=== PATIENT | male | born 1965 | race Caucasian/White ===

== ENCOUNTER → 2018-06-27 | Outpatient (CLI) | payer BC ==
--- NOTE | 2018-06-27 07:34 | US ---
EXAMINATION TYPE: US abdomen limited DATE OF EXAM: 06/27/2018 COMPARISON: NONE CLINICAL HISTORY: R52 PAIN. Intermittent RUQ pain x 6 months, gets worse after eating EXAM MEASUREMENTS: Liver Length: 15.9 cm Gallbladder Wall: 0.2 cm CBD: 0.3 cm Right Kidney: 10.5 x 4.8 x 5.6 cm Pancreas: visualized portions wnl, tail obscured by overlying midline bowel gas Liver: wnl Gallbladder: wnl Evidence for sonographic Willoughby's sign: no CBD: wnl Right Kidney: wnl IMPRESSION: 1. No distinct abnormality appreciated.
--- NOTE | 2018-06-27 09:12 | XR ---
EXAMINATION TYPE: XR chest 2V DATE OF EXAM: 06/27/2018 COMPARISON: NONE TECHNIQUE: PA and lateral views submitted. HISTORY: Chest pain FINDINGS: The lungs are clear and there is no pneumothorax, pleural effusion, or focal pneumonia. Hypertrophi c change of the spine. Hyperinflation of the lungs. Biapical pleural thickening. IMPRESSION: 1. No acute process.
== END ==
LOC: RADUSWWP 06:47
PROVIDERS: ATTEND Internal Medicine
DX: R10.11 Right upper quadrant pain (principal); T07.XXXA Unspecified multiple injuries, initial encounter
CPT/HCPCS: 71046; 76705

== ENCOUNTER → 2018-09-03 | Outpatient (CLI) | payer BC ==
--- NOTE | 2018-09-03 09:11 | NM ---
Nuclear medicine hepatobiliary scan. HISTORY: Pain. DOSAGE: The patient received 8 ounces of ensure plus and 5.1 mCi of Technetium 99m Choletec. FINDINGS: There is normal hepatic extraction. The gallbladder is seen by 20 minutes. There is bilia ry to bowel clearance by 20 minutes. Ejection fraction is 73%. IMPRESSION: 1. Normal hepatobiliary exam
== END | disposition home or self-care (01) ==
LOC: RADNMMAIN 06:39
PROVIDERS: ATTEND Internal Medicine
DX: R10.9 Unspecified abdominal pain (principal)
CPT/HCPCS: 78226; A9537

== ENCOUNTER → 2018-09-05 | Outpatient (CLI) | payer BC ==
[2018-09-05 09:30] LABS: Basophils # (A) 0.1 k/uL (0-0.2); Basophils % (A) 0 %; Eosinophils # (A) 0.1 k/uL (0-0.7); Eosinophils % (A) 1 %; HCT 42.2 % (39.0-53.0); HGB 13.7 gm/dL (13.0-17.5); Lymphocytes # (A) 1.8 k/uL (1.0-4.8); Lymphocytes % (A) 16 %; MCH 31.6 pg (25.0-35.0); MCHC 32.3 g/dL (31.0-37.0); MCV 97.7 fL (80.0-100.0); Mean Platelet Volume 6.5; Monocytes # (A) 0.4 k/uL (0-1.0); Monocytes % (A) 4 %; Neutrophils # (A) 8.6 k/uL (1.3-7.7); Neutrophils % (A) 76 %; Platelet Count 349 k/uL (150-450); RBC 4.32 m/uL (4.30-5.90); RDW 12.2 % (11.5-15.5); WBC 11.3 k/uL (3.8-10.6)
[2018-09-05 18:02] LABS: African American GFR (CKD) 114.2 (60.0-200.0); Albumin 4.4 g/dL (3.80-4.90); Albumin/Globulin Ratio 2.32 (1.60-3.17); Anion Gap 7.1 mmol/L (4.00-12.00); Calcium 9.5 mg/dL (8.7-10.3); Carbon Dioxide 24.9 mmol/L (21.6-31.8); Globulin 1.9 g/dL (1.6-3.3); Potassium 4.7 mmol/L (3.5-5.5); Total Bilirubin 0.3 mg/dL (0.2-1.2); Total Protein 6.3 g/dL (6.2-8.2)
== END | disposition home or self-care (01) ==
LOC: LABWHC1 08:46
PROVIDERS: ATTEND Internal Medicine
DX: R10.9 Unspecified abdominal pain (principal)
CPT/HCPCS: 36415; 80053; 82150; 83690; 85025

== ENCOUNTER 2018-09-17 07:13 | Day surgery (SDC) | payer BC ==
[2018-09-13 15:06] VITALS: BMI 26.5
[~2018-09-17 07:13] MED LIST: LACTATED RINGERS 1,000 ML IV SCH; LIDOCAINE 1% 20 ML VIAL (10MG/ML) FOR IV START INTRADERMA PRN
[2018-09-17 07:28] VITALS: TEMP 97
[2018-09-17] MEDS ORDERED: PROPOFOL 10 MG/ML 20 ML VIAL IV ONE (09:22)
[2018-09-17] MEDS ORDERED: LIDOCAINE 1% INJ 10MG/ML (20 ML MDV) ONE (09:22)
[2018-09-17 10:09] VITALS: RESP 16
--- NOTE | 2018-09-17 10:18 | P.PCN ---
Date of Procedure: 09/17/18 Description of Procedure: Brief history: Patient is a pleasant scheduled for an elective upper endoscopy as well as colonoscopy as a part of evaluation of intermittent epigastric and right upper quadrant abdominal pain and screening. The patient had been having pain proximally 3 times a week in the right upper quadrant and epigastric region over the past 6 months. He describes as aching in nature lasting approximately 1 hour. Ultrasound of abdomen was negative for any gallbladder or biliary pathology. EGD is being performed for further evaluation. In addition reports no prior history of screening colonoscopy. No family history of colon cancer. No change in bowel habits or blood per rectum. Procedure performed: Esophagogastroduodenoscopy with biopsy Colonoscopy with polypectomy Estimated blood loss: Minimal. Preoperative diagnosis: Epigastric abdominal pain, screening for malignant neoplasm of the colon, no prior colonoscopy Anesthesia: MAC Procedure: After informed consent was obtained from the patient was brought into the endoscopy unit and IV sedation was administered by anesthesia under continuous monitoring. Initially upper endoscopy was done. The Olympus GF 190 video endoscope was inserted inserted into the mouth and esophagus intubated without any difficulty and was gradually advanced into the stomach and duodenum and carefully examined. The bulb and second part of the duodenum appeared normal, with biopsies. The scope was then withdrawn into the stomach adequately insufflated with air and upon careful examination the antrum and body, cardia and fundus appeared grossly normal except for some mild diffuse erythema in the antrum and body suggestive of mild gastritis with biopsies taken. The scope was then withdrawn into the esophagus. The GE junction was located at 40 cm to the incisors and biopsies. It appeared regular with no erythema erosions or ulcerations. Rest of the esophagus appeared normal. Patient tolerated the procedure well. At this time the patient continued to remain sedation. Initial digital rectal examination was normal. Olympus CF 190 video colonoscope was then inserted into the rectum and gradually advanced to the cecum without any difficulty. Careful examination was performed as the scope was gradually being withdrawn. The prep was good. The cecum, ascending colon, transverse colon, descending colon, sigmoid colon and rectum appeared normal. 4 mm sessile transverse colon polyp removed with cold snare polypectomy. Pedunculated 11 mm sigmoid colon polyp removed with hot snare polypectomy. Mild internal hemorrhoids. Retroflexion was performed in the rectum and no lesions were noted. Patient tolerated the procedure well. Impression: 1. Mild gastritis antrum and body, biopsied. Duodenal biopsy. GE junction biopsy. 2. Cold snare polypectomy of transverse polyp. Hot snare polypectomy of pedunculated sigmoid polyp. Mild internal hemorrhoids. Recommendations: Findings of this examination were discussed with the patient as well as his father. Okay to resume diet. Await pathology from polypectomies and biopsies. Recommend colonoscopy in 3 years given high-risk colon polyp. Follow up with gastroenterology as previously scheduled.
[2018-09-17 10:24] VITALS: BP 123/74; PULSE 64
== END 2018-09-17 10:47 | disposition home or self-care (01) ==
LOC: ORWHC2ENDO 07:13
PROVIDERS: ATTEND Internal Medicine
DX: Z12.11 Encounter for screening for malignant neoplasm of colon (principal); D12.5 Benign neoplasm of sigmoid colon; K63.5 Polyp of colon; K29.80 Duodenitis without bleeding; K31.9 Disease of stomach and duodenum, unspecified; K21.0 Gastro-esophageal reflux disease with esophagitis; K64.8 Other hemorrhoids; F17.200 Nicotine dependence, unspecified, uncomplicated
CPT/HCPCS: 88305; 45385; 43239; J2001; J2704

== ENCOUNTER → 2019-12-26 | Outpatient (CLI) | payer BC | END | disposition home or self-care (01) | LOC: LABWHC1 15:04 | PROVIDERS: ATTEND Nurse Practitioner Family | DX: R50.9 Fever, unspecified (principal) | CPT/HCPCS: U0003; C9803 ==

== ENCOUNTER 2021-08-13 09:10 | Day surgery (SDC) | payer BC ==
[2021-08-12 09:58] VITALS: BMI 25.8
[~2021-08-13 09:10] MED LIST changes: +LIDOCAINE 1% (10MG/ML) FOR IV START INTRADERMA PRN; -LIDOCAINE 1% 20 ML VIAL (10MG/ML) FOR IV START INTRADERMA PRN
[2021-08-13 09:45] VITALS: TEMP 98.2
[2021-08-13] MEDS ORDERED: PROPOFOL 10 MG/ML 20 ML VIAL IV ONE (10:42)
--- NOTE | 2021-08-13 10:58 | P.PCN ---
Date of Procedure: 08/13/21 Procedure(s) Performed: BRIEF HISTORY: Patient is a 55-year-old pleasant white male white male scheduled for an elective colonoscopy as a part of evaluation of prior history of colon polyps. Last colonoscopy was 3 years ago. PROCEDURE PERFORMED: Colonoscopy with biopsy PREOPERATIVE DIAGNOSIS: history of colon polyps IV sedation per Anesthesia. PROCEDURE: After informed consent was obtained, the patient, was brought into the endoscopy unit. IV sedation was administered by Anesthesia under continuous monitoring. Digital rectal examination was normal. Initially the Olympus CF-160 flexible video colonoscope was then inserted in the rectum, gradually advanced into the cecum without any difficulty. Careful examination was performed as the scope was gradually being withdrawn. Ileocecal valve and the appendiceal orifice were visualized and appeared normal. Prep was excellent. Mucosa of the cecum, ascending colon, transverse colon, descending colon, sigmoid colon, and rectum appeared normal. there was a 5 limited polyp in the distal rectum that was removed by cold biopsy. Retroflexion was performed in the rectum and no lesions were seen. The patient tolerated the procedure well. IMPRESSION: 5 mm rectal polyp status post cold biopsy Rest of the colon appeared normal RECOMMENDATIONS: Findings of this examination were discussed with the patient as well as his family. He was advised to follow with the biopsy results. If the biopsy report adenoma he can have a repeat colonoscopy in 5 years
[2021-08-13 11:04] VITALS: RESP 16
[2021-08-13 11:21] VITALS: BP 128/77; PULSE 76
== END 2021-08-13 11:36 | disposition home or self-care (01) ==
LOC: ORWHC2ENDO 09:10
PROVIDERS: ATTEND Internal Medicine Gastroenterology
DX: K62.1 Rectal polyp (principal); Z86.010 Personal history of colon polyps; Z80.0 Family history of malignant neoplasm of digestive organs; K21.9 Gastro-esophageal reflux disease without esophagitis; F17.210 Nicotine dependence, cigarettes, uncomplicated
CPT/HCPCS: 88305; 45380; J2704